=== PATIENT | male | born 1990 | race Caucasian/White ===

== ENCOUNTER 2024-02-21 23:25 | Emergency (ER) | payer SELFPAY ==
[2024-02-21 23:32] VITALS: BP 136/81; PULSE 83; RESP 14; TEMP 36.7; O2SAT 96; BMI 33.9
[2024-02-21] MEDS: ERYTHROMYCIN BASE 1 GM OINT...G. OP (23:44)
--- NOTE | 2024-02-21 23:44 | HMH.EDGENADL ---
Discharge Plan Disposition Patient Disposition: Home, Self-Care Prescriptions Prescriptions: No Action levothyroxine 50 mcg tablet 50 mcg PO DAILY Patient Comments: take 1 tablet (50 mcg) by oral route once daily on an empty stomach 30 minutes before breakfast paroxetine HCl 20 mg tablet 20 mg PO DAILY Patient Comments: TAKE ONE TABLET BY MOUTH EVERY DAY Referrals Follow up/Referrals: Bridget Moon [Primary Care Provider] - See instructions Activity Restrictions/Add. Instructions Additional Instructions/Restrictions: Please apply erythromycin ointment 4 times a day for 7 days. Please follow-up with an eye doctor soon as possible. Clinical Impressions Clinical Impression: Corneal rust ring of left eye Acute foreign body of left cornea Qualifiers: Encounter type: initial encounter Qualified Code(s): T15.02XA - Foreign body in cornea, left eye, initial encounter Print Language Print Language: Divehi Discharge ED Provider: Miguel Rodriguez General Adult HPI General Chief complaint: Eye Problems Stated complaint: foreign object L eye Time Seen by Provider: 02/21/24 23:30 Mode of Arrival: Family Vehicle Source of Information: Patient and Spouse Limitations: No Limitations Description of Symptoms (Recalled from ER Triage Doc. by RN): 33 yo male presents with cc of left eye irritation and redness. States he was working on a car last night when a bunch of stuff fell into my face and i assume that's where it's from . PMH: hypothyroid, depression. No previous eye anomalies/surgeries. NKA. States vision is ok it just hurts. Denies drainage, denies swelling History of Present Illness HPI narrative: 33-year-old male without significant past medical history presents for left eye pain and irritation. He reports that he has something on his cornea. It happened yesterday, greater than 24 hours ago. He tried to wash it out and waited out without success. He reports it happened after he was cleaning his truck and a bunch of stuff fell on his face. He reports normal vision. Related Data Home Medications ?Medication ?Instructions ?Recorded ?Confirmed levothyroxine 50 mcg tablet 50 mcg PO DAILY thyroid 02/21/24 02/21/24 paroxetine HCl 20 mg tablet 20 mg PO DAILY Depression 02/21/24 02/21/24 Allergies Allergy/AdvReac Type Severity Reaction Status Date / Time No Known Allergies Allergy Verified 02/21/24 23:37 [facility] Disclaimer: The information contained in this section may have been updated after the patient was seen, as this information can be updated by other users. Social History Smoking Status: Unknown if ever smoked alcohol intake: never current occupational status: employed Travel in the last 8 weeks: None ROS Obtained: Yes All systems reviewed & no additional complaints except as documented Physical Exam General General appearance: alert and in no apparent distress Head Head exam: atraumatic and normocephalic Eye Eye exam: Present PERRL, EOMI and other (Left eye conjunctival injection with corneal foreign body noted in the 8 o'clock position, no other corneal lesions noted on fluorescein staining) ENT ENT exam: Present normal oropharynx and normal external ear exam Neck Neck exam: Present normal inspection and full ROM Chest Chest inspection: Present normal inspection and symmetric chest wall rise; Absent tenderness Respiratory Respiratory exam: Present normal lung sounds bilaterally; Absent respiratory distress Cardiovascular Cardiovascular exam: Present regular rate and normal rhythm Abdominal Exam Abdominal exam: Present soft; Absent distention, tenderness or guarding Extremities Exam Extremities exam: Present normal inspection; Absent edema or joint swelling Back Exam Back exam: Present normal inspection; Absent tenderness Neurological Exam Neurological exam: Present alert and oriented X3; Absent motor sensory deficit Psychiatric Psychiatric exam: Present normal affect and normal mood Skin Skin exam: Present warm, dry and normal color Lymphatic Lymphatic Findings: no adenopathy Medical Decision Making Medical Records Medical records reviewed: Yes I reviewed the patient's medical records. Jose Inquiry Pt receiving controlled substance: No Jose was queried for this patient: No Vital Signs: 02/21/24 23:32 02/21/24 23:47 Temperature 98.1 F 97.8 F Temperature Source Oral Oral Pulse Rate 67 Pulse Rate [Right Brachial] 83 Respiratory Rate 14 15 Blood Pressure 136/81 Blood Pressure [Right Arm] 136/81 Blood Pressure Mean [Right Arm] 99 Blood Pressure Source Automatic Cuff Blood Pressure Source [Right Arm] Automatic Cuff Blood Pressure Position Sitting Blood Pressure Position [Right Arm] Sitting 02 Sat by Pulse Oximetry 96 Oxygen Delivery Method Room Air Room Air Lab Data Lab results reviewed: Yes I reviewed the patient's lab results. Orders (Tests/Meds): ED MEDICATIONS Discontinued Medications Generic Name Dose Route Start Last Admin Trade Name Freq PRN Reason Stop Dose Admin Erythromycin 1 gm 02/21/24 23:43 02/21/24 23:44 Erythromycin Base 1 Gm Oint...G. OP 02/21/24 23:44 1 gm ONCE ONE Administration Fluorescein Sodium 1 mg 02/21/24 23:43 02/21/24 23:45 Fluorescein Sodium 1mg Strip OP 02/21/24 23:44 1 mg ONCE ONE Administration Tetracaine HCl 1 ml 02/21/24 23:43 02/21/24 23:45 Tetracaine 0.5% Opth Paula 15ml OP 02/21/24 23:44 1 ml ONCE ONE Administration Medical Decision Narrative: 33-year-old male without significant past medical history presents with left eye corneal foreign body. History was obtained via interactive discussion with patient. On arrival, patient is [afebrile, hemodynamically stable, satting appropriately, alert, oriented x4, GCS 15], moving all extremities spontaneously. Full physical exam performed and significant for conjunctival injection, dark small left corneal foreign body at the 8 o'clock position. No other lesions noted on fluorescein staining. Differential includes but is not limited to corneal foreign body, open globe, conjunctivitis. Patient was given fluorescein stain, tetracaine, erythromycin ointment, eyewash for symptomatic management and correction of underlying abnormalities. We attempted to remove the foreign body with irrigation and brushing with a Q-tip without success. It was removed successfully with a needle, residual rust ring remains. He did not have the proper tools to remove the rust ring effectively. Patient was discharged with erythromycin ointment and instructions to follow-up with an eye doctor as soon as possible. Procedures Risk/Benefits of Procedure(s) Were Explained: Yes Eye Exam/FB Removal Location: eye (L) Topical anesthetic used: tetracaine Fluorescein Stick(s) used: Yes Procedure performed under: direct visualization with magnification Foreign body: metal Evidence of corneal penetration: No Technique: irrigation, cotton tip swab and needle Post-procedure medication: ophthalmic antibiotic Patient tolerated procedure: well Complications: residual rust ring Critical Care Critical Care Time Critical Care Time: No
[2024-02-21] MEDS: FLUORESCEIN SODIUM 1MG STRIP 1 MG OP (23:45)
[2024-02-21] MEDS: TETRACAINE 0.5% OPTH SOL 15ML OP (23:45)
[2024-02-21 23:47] VITALS: BP 136/81; PULSE 67; RESP 15; TEMP 36.6; O2SAT 98
== END 2024-02-21 23:49 | disposition home or self-care (01) ==
PROVIDERS: Emergency Provider Emergency Medicine; PCP Nurse Practitioner Family
DX: T15.02XA Foreign body in cornea, left eye, initial encounter (principal); H16.022 Ring corneal ulcer, left eye; W44.9XXA Unspecified foreign body entering into or through a natural orifice, initial encounter
CPT/HCPCS: 65220; 99283